=== PATIENT | female | born 1945 | race Caucasian/White ===

== ENCOUNTER 2019-07-13 07:14 | Inpatient (IN) | payer MEDICARE, OTHER, SELFPAY ==
[2019-07-12 13:33] VITALS: BMI 33.8
[2019-07-13] VITALS (21 sets, daily range): BP systolic 104–157; BP diastolic 32–80; PULSE 60–76; RESP 15–21; TEMP 36.3–36.8; O2SAT 91–98
[2019-07-13] MEDS: sodium chloride 0.9% 1,000 ML 30 ML IV (06:12)
--- NOTE | 2019-07-13 06:20 | ANES.PREANES ---
Pre-Anesthetic Assessment Pre-Anesthetic Assessment: Height/Weight: Height 1.6 m Weight 86.636 kg Temp Pulse Resp BP Pulse Ox 97.3 F L 76 18 152/76 97 07/13/19 05:35 07/13/19 05:35 07/13/19 05:35 07/13/19 05:35 07/13/19 05:35 Proposed Procedure: Operation Date: 07/13/19 07:05 Proposed Procedures p Total Shoulder Arthroplasty 01652 , M19.011(Right) - Eliazar Meyers MD Familial anesthetic complications: none Was Beta Karan taken within 24 hours: Yes Last intake: Intake Last Liquid Date 07/12/19 Last Solid Date 07/12/19 Social: Social History: No alcohol and No tobacco Exam: Pre-Anes Outpt Exam: regular rate & rhythm Airway: Submandibular: WNL Cervical ROM: WNL MP: 2 Additional comments: chipped and missing Pulmonary: Pulmonary: None reported CV/HEM: CV/HEM: Afib, CAD and HTN Comments: seen by dr. werner : : None reported Hepatic: Hepatic: None reported GI: GI: GERD Metabolic: Comments: pre diabetic Musc/skel: Comments: spinal cord stimulator Neuropsych: Neuropsych: None reported Anesthetic Plan: ASA status: III Anesthesia: General and Regional (specify below) Other: isb Risk of > 500 ml blood loss (7ml/kg in children): Yes, adequate IV access and fluids planned Meds/Allergies Current Medications: Current Medications Generic Name Dose Route Start Last Admin Trade Name Freq PRN Reason Stop Dose Admin Sodium Chloride 1,000 mls @ 30 ml s/hr 07/13/19 05:30 07/13/19 06:12 Sodium Chloride 0.9% IV 07/14/19 05:29 30 mls/hr .Q24H DENA Administration PFSH Anesthesia PFSH: Social History (Updated 07/12/19 @ 13:30 by Paula Brewer) Smoking and tobacco status: never smoked Alcohol intake: never Data Anesthesia Cardiac Studies: No Data to Display
[2019-07-13] MEDS: midazolam 1 mg/mL INJ 5 ML 2 MG IV ×2 (06:40→06:41)
--- NOTE | 2019-07-13 06:57 | PM.HP ---
Providers/Chief Complaint Primary Care Provider: Laurie Freeman MD Chief Complaint: Primary osteoarthritis of right shoulder History of Present Illness Donna Mondragon is a 74 year old female with a long history of pain in her right shoulder. He describes it dull and aching and generally worse with use. She has particular trouble with overhead activity and lifting. He describes progressive motion loss. She has failed physical therapy, medications including Ultram, and morphine which she takes for her low back. She is here for elective right total shoulder arthroplasty. Review of Systems Const: Denies: fever or chills Card: Denies: chest pain or palpitations Resp: Denies: shortness of breath or productive cough GI: Denies: abdominal pain, nausea or vomiting : Denies: urinary frequency Ishan/Lymph: Reports: other (Denies deep venous thromboses or pulmonary emboli); Denies: easy bleeding Medications/Allergies Home Medications Medication Instructions Recorded Confirmed Last Taken Type amlodipine-benazepril 1 cap PO DAILY 07/12/19 07/13/19 07/13/19 05:00 History ascorbic acid (vitamin C) [Vitamin 1,500 mg PO DAILY 07/12/19 07/13/19 07/12/19 History C] aspirin [Aspir-81] 81 mg PO DAILY 07/12/19 07/13/19 07/10/19 History calcium carbonate [Calcium 600] 600 mg PO DAILY 07/12/19 07/13/19 07/12/19 History chlorpheniramine maleate 4 mg PO Q8H PRN 07/12/19 07/13/19 07/12/19 History [ChlorTabs] docusate sodium [Colace] 100 mg PO DAILY 07/12/19 07/13/19 07/12/19 History gabapentin 300 mg PO TID 07/12/19 07/13/19 07/12/19 History hydralazine 50 mg PO TID PRN 07/12/19 07/13/19 07/13/19 05:00 History hydrochlorothiazide 6.25 mg PO DAILY 07/12/19 07/13/19 07/12/19 History ipratropium bromide 2 spray INTRANASAL DAILY 07/12/19 07/13/19 07/12/19 History loratadine [Claritin] 10 mg PO DAILY 07/12/19 07/13/19 07/12/19 History magnesium oxide 400 mg PO BID 07/12/19 07/13/19 07/12/19 History metoprolol tartrate 50 mg PO BID 07/12/19 07/13/19 07/13/19 05:00 History multivitamin 1 tab PO DAILY 07/12/19 07/13/19 07/12/19 History nitroglycerin [Nitrostat] 0.4 mg SUBLINGUAL Q5M PRN 07/12/19 07/12/19 Unknown History omeprazole 40 mg PO BID 07/12/19 07/13/19 07/13/19 05:00 History potassium gluconate 99 mg PO DAILY 07/12/19 07/13/19 07/12/19 History ropinirole 2 mg PO BEDTIME 07/12/19 07/13/19 07/12/19 History tramadol 50 mg PO BID PRN 07/12/19 07/13/19 07/12/19 History zolpidem 5 mg PO BEDTIME 07/12/19 07/13/19 07/11/19 History acetaminophen [Tylenol Extra 500 mg PO Q4H PRN 07/13/19 07/13/19 07/12/19 History Strength] Allergies Allergy/AdvReac Type Severity Reaction Status Date / Time latex Allergy ALGY-Rash Verified 07/13/19 05:56 baclofen AdvReac ADR-Fatigue Verified 07/13/19 05:36 d PFSH Acute PFSH: Statuses (acute, chronic, etc) shown below reflect problem list status as previously entered and may not be historically accurate Medical History (Updated 07/13/19 @ 07:07 by Eliazar Meyers MD) Afib (Acute) Back pain (Acute) HTN (hypertension) (Acute) Social History (Updated 07/12/19 @ 13:30 by Paula Brewer) Smoking and tobacco status: never smoked Alcohol intake: never Vitals/I&O/Wt Last Vital Signs Temp 97.3 F L 07/13/19 05:35 Pulse 76 07/13/19 05:35 Resp 18 07/13/19 05:35 BP 152/76 07/13/19 05:35 Pulse Ox 97 07/13/19 05:35 Weight last 48 hrs Weight 191 lb Weight 191 lb Physical Exam Narrative: EXAM NARRATIVE: HEAD: Normocephalic/atraumatic. NECK: Soft supple nontender. HEART: Normal heart sounds, regular rhythm. CHEST: Clear to auscultation. ABDOMEN: Soft nontender nondistended. Right upper extremity: Her right shoulder can be flexed to 90 and externally rotated to 0. She can abduct 70 degrees. She has weakness abducting her arm away from her body due to pain but her biceps, triceps, welder production line arc, interossei, wrist extensors, wrist flexors are strong and symmetrical. Her sensation is intact light touch. Data Imaging^: Xray Ortho: My impression: Plain radiographs dated 04/22/19 show complete obliteration of the glenohumeral joint space. There is no proximal migration of the humerus. A CT scan dated that same date shows a fairly concentric wear pattern with minimal posterior wear A&P Assessment and plan (1) Osteoarthritis of right shoulder: The patient is scheduled for an elective right total shoulder arthroplasty. She has been previously counseled. We will proceed as scheduled. Status: Acute Code(s): M19.011 - Primary osteoarthritis, right shoulder Attestations Medical Necessity Statement*: Patient will be admitted inpatient for pain management and initiation of physical therapy. Coding Level of Care Code Acute Rn Case Manager for Gabino Ford Diagnoses Osteoarthritis of right shoulder M19.011
--- NOTE | 2019-07-13 07:11 | ANES.PROC ---
Anesthesia Procedures Procedure/Date: 07/13/19 Nerve Block ^: Nerve Block 1: Main Anesthesia: general anesthesia Time Out Performed: Yes Consent: requested by attending/covering physician, from patient, risks and benefits reviewed and patient agrees to proceed Nerve block location: interscalene (Right) Anesthesia monitors applied: pulse oximetry, EKG, BP cuff and oxygen Nerve block position: semi sitting Anesthetic Used: ropivicaine 0.5% (20 ml) and with decadron (4 mg) Ultrasound used to: recognize landmarks and visualize and ID brachial plexus Nerve Stimulator Used?: No Interscalene/Femoral BLK: 2 stimuplex 22 g needle used for position and inplane approach Injection: neg aspiration of heme and paresthesia +/- Patient Tolerated Procedure: well and no complications Additional Comments: chloroprep of skin
--- NOTE | 2019-07-13 08:30 | SUR.OPER ---
0755 - Pt's son (Jeison) notified of surgery start via his cell phone.
[2019-07-13] MEDS: EPINEPHrine 1 mg/mL INJ XX (08:44)
--- NOTE | 2019-07-13 09:25 | SUR.OPER ---
0924 - On's name is Ric, not Jeison. Ric updated on surgery progress and pt status via his cell phone
--- NOTE | 2019-07-13 09:44 | P.OP_ITS ---
Operative Report Post-Operative Note: Date of procedure: 07/13/19 Preop Diagnosis: Osteoarthritis right shoulder Post-op diagnosis: same Post-op Findings: Same Procedure Done: Right total shoulder arthroplasty Implants: Rodrigo ReUnion total shoulder: 13 mm diameter/97 mm length press-fit humeral stem, size 44/16 mm thickness humeral head, size 48 self pressurizing glenoid. Pathology: none sent Anesthesia: ISB Estimated blood loss (mL): 200 Complications: None Findings: The patient had severe glenohumeral joint disease of the right s houlder with flattening and peripheral osteophytes about the humeral head and fairly concentric sclerotic wear of the glenoid Condition: stable Disp osition: PACU Operative Report: Procedure: An intrascalene blocks provided the holding area. The patient was taken to the operating room and given a general anesthesia. They were given 2 g of Ancef. Positioned in beachchair position with the arm in arm chambers. A timeout was performed. A 10 cm long incision was made over the deltopectoral groove and dissection carried out with a scalpel blade to the deltopectoral interval. The cephalic vein was identified and retracted laterally. Digital dissection was accomplished to free lesions beneath the deltoid and beneath the coracobrachialis musculature. A self-retaining retractor was placed along axis to the subscapularis tendon. Utilizing cautery the subscapularis was released anteriorly in full-thickness with the capsule and freed distally at the level of the anterior humeral circumflex vessels. The glenohumeral joint include bending externally rotated and dislocated anteriorly. A canal finder was placed down the canal and sequential reaming accomplished up to 13 mm. The proximal humerus was then broached to 13 mm. Utilizing electrocautery the glenoid was spelled circumferentially. The centering guide was used to place the central guidepin and the glenoid ream down to sclerotic bone. A 48 mm [place] baseplate seemed to provide the best coverage. The baseplate was prepared with the central and 3 peripheral holes. The drill holes were soaked in epinephrine solution and the final 48 mm self pressurizing glenoid component was placed. The final size 13 ReUnion press-fit humeral stem humeral stem was press-fit into place. With a braided #2 suture passed around the stem and through the lesser tuberosity. The final 44 mm diameter/16 mm head was placed. The shoulder was reduced and found to be stable. The subscapularis was repaired with the sutures through the tuberosity to bone and reinforced with 1 Ethibond. The deltopectoral interval was closed with 0 Vicryl. The subcutaneous tissues were closed with 2-0 Vicryl. The skin was closed with skin gab. Sterile dressings were applied. The patient was placed in a sling extubated and taken to recovery room in stable condition. Coding Level of Care Code Acute Pan Devulcanizer Helper for Gabino Ford
--- NOTE | 2019-07-13 10:02 | XR_ITS ---
WS: [id number] SHOULDER RIGHT TECHNIQUE: 3 views of the right shoulder CLINICAL INFORMATION: postop TSA COMPARISON: FINDINGS: Postoperative changes right total shoulder arthroplasty. Hardware appears well seated. Surgical gab. Soft tissue edema. XR/XR shoulder RT 1V [id number] IMPRESSION: Satisfactory early postoperative changes right TSA.
--- NOTE | 2019-07-13 10:07 | SUR.PHASEI ---
0950 PATIENT TO PACU AT THIS TIME VIA GURNEY FROM OR. PATIENT ALERT, RR EVEN AND UNLABORED. DRESSING TO RIGHT SHOULDER, CDI. SLING IN PLACE. RIGHT RADIAL PULSE PRESENT. CAP REFILL < 3 SECONDS.
--- NOTE | 2019-07-13 10:21 | SUR.PHASEI ---
1021 FAMILY UPDATED AND DIRECTED TO MED SURG WAITING ROOM.
--- NOTE | 2019-07-13 10:52 | SUR.PHASEI ---
1031 PATIENT TO MED SURG AT THIS TIME. A/OX3. RR EVEN AND UNLABORED. PWD. DRESSING TO RIGHT SHOULDER, CDI. RADIAL PULSE PRESENT. CAP REFILL < [address] FIRST ICE IN PLACE.
--- NOTE | 2019-07-13 10:53 | SUR.PHASEI ---
VSS ON ARRIVAL TO MED SURG . 114/65, PULSE 65, RR 15, SPO2 92%, TEMP 97.9
[2019-07-13] MEDS: ondansetron 2 mg/ML SDV 2 mL 4 MG IVP (11:19)
[2019-07-13] MEDS: sodium chloride 0.9% 1,000 ML 80 ML IV (11:21)
[2019-07-13] MEDS: morphine 4 mg/mL SDV 1 mL 2 MG IVP ×2 (12:08→23:08)
--- NOTE | 2019-07-13 13:26 | PM.PACU ---
PACU note Post-Anesthesia Exam: awake and vital signs stable Disposition: back to floor
[2019-07-13] MEDS: acetaminophen 500 mg Tablet PO ×2 (13:54→23:09)
[2019-07-13] MEDS: TRAMadol 50 mg Tablet PO ×2 (13:55→23:08)
[2019-07-13] MEDS: gabapentin 300 mg Capsule PO ×2 (14:00→20:56)
[2019-07-13] MEDS: ceFAZolin 1,000 MG in sodium chloride 0.9% (plus) 50 ML 100 MG IV ×2 (16:42→23:09)
--- NOTE | 2019-07-13 17:25 | PC.PT ---
Patient seen by OT, SBA for transfers and gait, which OT is addressing, no PT required at this time. Thank You.
[2019-07-13] MEDS: pantoprazole DR 40 mg Tablet PO (18:22)
[2019-07-13] MEDS: metoprolol tartrate 50 mg Tablet PO (18:22)
[2019-07-13] MEDS: ropinirole 1 mg Tablet 2 MG PO (20:56)
[2019-07-13] MEDS: oxyCODONE 5 mg IR Tab/Cap PO (21:00)
[2019-07-13] MEDS: zolpidem 5 mg Tablet PO (21:54)
--- NOTE | 2019-07-13 23:39 | PC.NURSE ---
Pain: Patient states pain is still a 6/10 but it is starting to ease down; it is not as intense as it was.
[2019-07-14 01:38] VITALS: RESP 18
[2019-07-14] MEDS: oxyCODONE 5 mg IR Tab/Cap PO ×2 (01:38→06:12)
[2019-07-14 01:39] VITALS: RESP 18
[2019-07-14] MEDS: morphine 4 mg/mL SDV 1 mL 2 MG IVP (01:39)
[2019-07-14] MEDS: sodium chloride 0.9% 1,000 ML 80 ML IV (02:04)
--- NOTE | 2019-07-14 02:05 | PC.NURSE ---
Pain: Pain has gotten better per patient. She still states it is a 6/10. Educated on pain scale. Per FLACC she is 0. Per report she is a 6 with improvement and tolerability. Neuro vascular checks have been normal.
[2019-07-14 03:34] VITALS: BP 127/65; PULSE 76; RESP 18; TEMP 37.3; O2SAT 89
[2019-07-14] MEDS: ondansetron 2 mg/ML SDV 2 mL 4 MG IVP ×2 (05:02→09:26)
[2019-07-14 05:39] LABS: Basophils % 0.2 %; Eosinophils % 0.1 %; Hematocrit 35.1 % (37.0-47.0); Lymphocytes # 1.3 10^3/uL (0.8-4.8); Lymphocytes % 10.3 %; Mean Corpuscular HGB Conc 31.3 g/dL (30.0-36.0); Mean Corpuscular Hemoglobin 30.5 pg (28.0-34.0); Mean Corpuscular Volume 97.2 fL (81-99); Mean Platelet Volume 10.1 fL (7.4-10.4); Monocytes # 1.5 10^3/uL (0.2-0.9); Monocytes % 11.8 %; Neutrophils # 9.5 10^3/uL (1.8-7.7); Neutrophils % 77.2 %; Nucleated Red Blood Cells % 0 %; Platelet Count 282 10^3/cmm (130-400); Red Blood Count 3.61 10^6/uL (4.1-5.3); Red Cell Distribution Width 13.4 % (12.1-15.1); White Blood Count 12.3 10^3/uL (4.0-10.0)
[2019-07-14 06:12] VITALS: RESP 17
[2019-07-14] MEDS: ceFAZolin 1,000 MG in sodium chloride 0.9% (plus) 50 ML 100 MG IV (06:13)
[2019-07-14 07:47] VITALS: BP 134/70; PULSE 80; RESP 18; TEMP 37.5; O2SAT 94
[2019-07-14] MEDS: gabapentin 300 mg Capsule PO (08:30)
[2019-07-14] MEDS: aspirin 81 mg EC Tablet PO (08:30)
[2019-07-14] MEDS: lisinopril 20 mg Tablet PO (08:30)
[2019-07-14] MEDS: hydroCHLOROthiazide 25 mg Tablet 6.25 MG PO (08:30)
[2019-07-14] MEDS: metoprolol tartrate 50 mg Tablet PO (08:30)
[2019-07-14] MEDS: pantoprazole DR 40 mg Tablet PO (08:31)
[2019-07-14] MEDS: amlodipine 10 mg Tablet PO (08:31)
[2019-07-14] MEDS: loratadine 10 mg Tablet PO (08:31)
--- NOTE | 2019-07-14 08:41 | PM.DCS ---
Discharge Providers Date of Admission: 07/13/19 07:14 Date of Discharge: 07/14/19 Attending Provider at Admission: Eliazar Meyers Attending Provider at Discharge: Eliazar Meyers Primary Care Provider: Laurie Freeman MD Diagnoses at Discharge Discharge Diagnosis (1) Osteoarthritis of right shoulder: Status: Acute Reason for Visit Reason for Visit: Reason For Visit: Primary osteoarthritis of right shoulder Hospital Course Hospital Course: The patient tolerated her right total shoulder arthroplasty well. By the first postoperative day she was compliant with her exercise program. Her pain was tolerable with oral medications. Tolerating p.o. diet and passing urine. She was thought stable for discharge at that time. Physical Exam Narrative: EXAM NARRATIVE: The patient's right shoulder dressing was clean and dry. She had slight bruising over her antecubital elbow. She would fire her deltoid and her biceps. She had no motor deficits in her right forearm and hand Discharge Data Data Completed and Pending: Completed Studies During Hospitalization Category Date Time Status XR shoulder RT 1V [id number] Routine Exams 07/13/19 10:02 Completed Labs from last 24 hours 07/14/19 04:45 WBC 12.3 H RBC 3.61 L Hgb 11.0 L Hct 35.1 L MCV 97.2 MCH 30.5 MCHC 31.3 RDW 13.4 Plt Count 282 MPV 10.1 Neut % (Auto) 77.2 Lymph % (Auto) 10.3 [place] % (Auto) 11.8 Eos % (Auto) 0.1 Baso % (Auto) 0.2 Neut # (Auto) 9.5 H Lymph # (Auto) 1.3 [place] # (Auto) 1.5 H Eos # (Auto) 0.0 Baso # (Auto) 0.0 Nucleated RBC % (a uto) 0 Nucleated RBCs # 0.0 Vitals: Last Vital Signs Temp 99.5 F 07/14/19 07:47 Pulse 80 07/14/19 07:47 Resp 18 07/14/19 07:47 BP 134/70 07/14/19 07:47 Pulse Ox 94 07/14/19 07:47 Discharge Plan Discharge Patient Disposition: Home, Self-Care Condition: Stable Prescriptions: New oxycodone 5 mg Tablet 5 - 10 mg PO Q4H PRN (Reason: Moderate To Severe Pain) Qty: 40 RF: 0 Continued multivitamin Tablet 1 tab PO DAILY RF: 0 ascorbic acid (vitamin C) [Vitamin C] 1,000 mg Tablet 1,500 mg PO DAILY RF: 0 chlorpheniramine maleate [ChlorTabs] 4 mg Tablet 4 mg PO Q8H PRN (Reason: Allergic Symptoms) RF: 0 ropinirole 1 mg tablet 2 mg PO BEDTIME RF: 0 omeprazole 40 mg capsule,delayed release(DR/EC) 40 mg PO BID RF: 0 aspirin [Aspir-81] 81 mg Tablet,Delayed Release (Dr/Ec) 81 mg PO DAILY RF: 0 tramadol 50 mg tablet 50 mg PO BID PRN (Reason: Pain) RF: 0 calcium carbonate [Calcium 600] 600 mg calcium (1,500 mg) Tablet 600 mg PO DAILY RF: 0 metoprolol tartrate 50 mg tablet 50 mg PO BID RF: 0 Nitrostat 0.4 mg Tablet, Sublingual 0.4 mg SUBLINGUAL Q5M PRN (Reason: Chest Pain) RF: 0 docusate sodium [Colace] 100 mg Capsule 100 mg PO DAILY RF: 0 gabapentin 300 mg capsule 300 mg PO TID RF: 0 hydralazine 50 mg tablet 50 mg PO TID PRN (Reason: Itching) RF: 0 hydrochlorothiazide 25 mg tablet 6.25 mg PO DAILY RF: 0 zolpidem 5 mg tablet 5 mg PO BEDTIME RF: 0 ipratropium bromide 0.03 % spray,non-aerosol 2 spray INTRANASAL DAILY RF: 0 loratadine [Claritin] 10 mg Tablet 10 mg PO DAILY RF: 0 amlodipine-benazepril 10-20 mg capsule 1 cap PO DAILY RF: 0 potassium gluconate 595 mg (99 mg) Tablet Extended Release 99 mg PO DAILY RF: 0 magnesium oxide 400 mg magnesium Tablet 400 mg PO BID RF: 0 Tylenol Extra Strength 500 mg Tablet 500 mg PO Q4H PRN (Reason: PAIN) RF: 0 Discharge Orders: Discharge Order (Routine); Ordered 07/14/19 Ordered By: Eliazar Meyers Referrals: Eliazar Meyers MD [Physician] - 07/28/19 9:45 am Discharge Diet: Advance as tolerated Discharge Activity: As per PT/OT instructions Activity Restrictions/Additional Instructions: May shower once incisions completely free of drainage. Replaced dressings as needed for drainage. May take Ultram as usual Take oxycodone for breakthrough pain. Exercises per physical therapy. Ice as needed for pain and swelling.. Discharge Attestations Time Spent in Discharge Care*: other Quality Metrics Clinical Quality Measures During this hospital stay, did patient experience: None Coding Level of Care Code Acute Commercial Collections Specialist for Gabino Ford Diagnoses Osteoarthritis of right shoulder M19.011
[2019-07-14 09:19] VITALS: RESP 18; TEMP 37.5; O2SAT 94
--- NOTE | 2019-07-14 14:28 | ANE.PACU ---
 Inpatient post-anesthesia follow up: Airway intact: Yes Vital signs: Temperature 99.5 F Pulse Rate [Right Radial] 80 Pulse Rate [Left] 64 Respiratory Rate 18 Blood Pressure [Le ft Arm] 134/70 Pulse Oximetry 94 Oxygen Delivery Me thod Room Air Oxygen Flow Rate 8 Fraction of Inspir ed Oxygen Hydration adequate: Yes Nausea and vomiting: No Mental status: Baseline
== END 2019-07-14 10:28 | disposition home or self-care (01) | DRG 483 ==
LOC: MEDSURG 10:19
PROVIDERS: Admitting Provider Orthopaedic Surgery; Family Provider Family Medicine; PCP Family Medicine; Visit Provider Orthopaedic Surgery
PROC: 0RRJ0JZ Replacement of Right Shoulder Joint with Synthetic Substitute, Open Approach (ICD-10-PCS; CPT 23472; principal; 2019-07-13 07:00)
DX: M19.011 Primary osteoarthritis, right shoulder (principal); Z79.82 Long term (current) use of aspirin; I48.91 Unspecified atrial fibrillation; I10 Essential (primary) hypertension
CPT/HCPCS: 36415; 73020; 85025; 96365; 96374; 96375; 97110; 97166; 97530; 97535; C1776; J0171; J0690; J1100; J1580; J2001; J2250; J2270; J2370; J2405; J2704; J2710; J2795; J3010; J3490; J7030

== ENCOUNTER 2019-08-01 13:28 | Outpatient (RCR) | payer MEDICARE, OTHER, SELFPAY | END 2019-08-05 23:59 | disposition home or self-care (01) | LOC: SPT 13:28 | PROVIDERS: Family Provider Family Medicine; PCP Family Medicine; Referring Provider Orthopaedic Surgery; Visit Provider Orthopaedic Surgery | DX: Z47.1 Aftercare following joint replacement surgery (principal); Z96.611 Presence of right artificial shoulder joint | CPT/HCPCS: 97110; 97161 ==

== ENCOUNTER 2019-08-06 06:00 | Outpatient (RCR) | payer MEDICARE, OTHER, SELFPAY | END 2019-09-03 23:59 | disposition home or self-care (01) | LOC: SPT 06:00 | PROVIDERS: Family Provider Family Medicine; PCP Family Medicine; Referring Provider Orthopaedic Surgery; Visit Provider Orthopaedic Surgery | DX: Z47.1 Aftercare following joint replacement surgery (principal); Z96.611 Presence of right artificial shoulder joint | CPT/HCPCS: 97110 ==

== ENCOUNTER → 2019-08-22 13:08 | Outpatient (BNVA) | payer MEDICARE, OTHER, SELFPAY | PROVIDERS: Family Provider Family Medicine; PCP Family Medicine; Visit Provider Orthopaedic Surgery | DX: Z48.89 Encounter for other specified surgical aftercare (principal) | CPT/HCPCS: 73030 ==

== ENCOUNTER 2019-09-04 06:00 | Outpatient (RCR) | payer MEDICARE, OTHER, SELFPAY | END 2019-10-04 23:59 | disposition home or self-care (01) | LOC: SPT 06:00 | PROVIDERS: Family Provider Family Medicine; PCP Family Medicine; Referring Provider Orthopaedic Surgery; Visit Provider Orthopaedic Surgery | DX: Z47.1 Aftercare following joint replacement surgery (principal) | CPT/HCPCS: 97110 ==

== ENCOUNTER → 2019-09-23 12:54 | Outpatient (BNVA) | payer MEDICARE, OTHER, SELFPAY | PROVIDERS: Family Provider Family Medicine; PCP Family Medicine; Visit Provider Anesthesiology | DX: G89.29 Other chronic pain (principal); M54.6 Pain in thoracic spine; M54.9 Dorsalgia, unspecified; Z96.611 Presence of right artificial shoulder joint; Z79.891 Long term (current) use of opiate analgesic | CPT/HCPCS: 99214 ==

== ENCOUNTER 2019-10-05 06:00 | Outpatient (RCR) | payer MEDICARE, OTHER, SELFPAY | END 2019-11-03 23:59 | disposition home or self-care (01) | LOC: SPT 06:00 | PROVIDERS: Family Provider Family Medicine; PCP Family Medicine; Referring Provider Orthopaedic Surgery; Visit Provider Orthopaedic Surgery | DX: Z47.1 Aftercare following joint replacement surgery (principal); Z96.611 Presence of right artificial shoulder joint | CPT/HCPCS: 97110 ==

== ENCOUNTER → 2020-01-03 09:21 | Outpatient (BNVA) | payer MEDICARE, OTHER, SELFPAY | PROVIDERS: Family Provider Family Medicine; PCP Family Medicine; Visit Provider Anesthesiology | DX: G89.29 Other chronic pain (principal); M54.9 Dorsalgia, unspecified; Z96.611 Presence of right artificial shoulder joint; Z79.891 Long term (current) use of opiate analgesic | CPT/HCPCS: 99213; 99214 ==

== ENCOUNTER → 2020-03-27 09:56 | Outpatient (BNVA) | payer MEDICARE, OTHER, SELFPAY | PROVIDERS: Family Provider Family Medicine; PCP Internal Medicine; Visit Provider Nurse Practitioner | DX: G89.29 Other chronic pain (principal); M54.42 Lumbago with sciatica, left side; M54.41 Lumbago with sciatica, right side; M54.9 Dorsalgia, unspecified; M54.6 Pain in thoracic spine; G25.81 Restless legs syndrome; G47.01 Insomnia due to medical condition; Z79.891 Long term (current) use of opiate analgesic | CPT/HCPCS: 99215 ==

== ENCOUNTER 2020-04-10 12:34 | Outpatient (CLI) | payer MEDICARE, OTHER, SELFPAY ==
--- NOTE | 2020-04-10 13:00 | CT_ITS ---
WS: [id number] CT LUMBAR SPINE TECHNIQUE: Noncontrast CT of the lumbar spine with coronal and sagittal reformatted images. CLINICAL INFORMATION: Increased pain with increased leg pain COMPARISON: None. DLP: 1931.[address] scans at [facility] use at least one of these dose optimization techniques: automat ed exposure control; mA and/or kV adjustment per patient size (includes targeted exams where dose is matched to clinical indication); or iterative reconstruction. FINDINGS: Mild lumbar curve convex left. No acute compression fractures. Disc space narrowing worse L5-S1 with vacuum disc phenomenon. L1-L2: Mild disc bulging with slight effacement of the ventral thecal sac. Osteophytic ridging. Mild facet arthropathy. Spinal canal and foramen are patent. L2-L3: Mild annular bulging. Slight narrowing of the left subarticular recess. Spinal canal and alma delia en are patent. Moderate facet arthropathy. L3-L4: Mild disc bulging with moderate facet arthropathy. Mild to moderate central canal stenosis wit h narrowing of the subarticular recess. Mild left and no significant right foraminal narrowing. L4-L5: Mild annular bulging. Left proximal foraminal protrusion slightly encroaches on the exiting le ft L4 nerve root laterally. Narrowing of the left subarticular recess. Impingement on the traversing left L5 nerve root. Right foramen is patent. Moderate facet arthropathy. Moderate central canal steno sis. L5-S1: Small broad-based central protrusion with mild central canal stenosis. Impingement traversing S1 nerve roots bilaterally. Mild to moderate left foraminal narrowing. Exophytic increased attenuation left renal lesion likely represents hemorrhagic cyst measuring 1.5 CM . This can be followed up with ultrasound. Visualized pelvic bony structures: Normal. Paravertebral soft tissues: Normal. CT/CT lumbar spine wo con* [id number] IMPRESSION: 1. Mild lumbar curve. No acute compression. 2. Moderate central canal stenosis L3-L4 and L4-L5 due to disc bulging in comb ination with facet arthropathy and ligament flavum hypertrophy. This appears pr ogressed since the MRI in 2018. 3. Left proximal foraminal disc protrusion L4-5 with impingement traversing le ft L5 nerve root and slight encroachment on the far exiting left L4 nerve root. 4. Moderate facet arthropathy. L3-L5. 5. Small central protrusion L5-S1 impinges the traversing S1 nerve roots bilat erally with moderate left foraminal narrowing.
--- NOTE | 2020-04-10 13:30 | CT_ITS ---
WS: [id number] CT THORACIC SPINE TECHNIQUE: Noncontrast CT of the thoracic spine with coronal and sagittal reformatted images. CLINICAL INFORMATION: Increased thoracic pain COMPARISON: CT July 12, 2018 and MRI 6 20,018 DLP: 2926.[address] scans at [facility] use at least one of these dose optimization techniques: automat ed exposure control; mA and/or kV adjustment per patient size (includes targeted exams where dose is matched to clinical indication); or iterative reconstruction. FINDINGS: S-shaped thoracic scoliosis. Moderate thoracic kyphosis. Moderate spondylitic changes thoracic spine with anterior hypertrophic changes. Dorsal spinal stimulator with electrode leads in the mid thoracic spine at T7-8 level. No high-grade central canal stenosis. No significant visualized disc protrusion s or extrusions. No acute appearing compression fractures. Mild chronic anterior wedging in the mid t horacic spine at T7. Moderate facet arthropathy lower thoracic spine. Mild bony foraminal narrowing l eft T8-9 and left T10-11. Aortic calcification. Slight atelectasis in the lung bases. Tortuous thoracic aorta. Partially visualized left renal cyst. CT/CT thoracic spin wo con* [id number] IMPRESSION: 1. S-shaped thoracic scoliosis with moderate thoracic kyphosis. 2. Thoracic spinal stimulator with electrode leads dorsally at T8-T9 appears i n good position. 3. No significant central canal stenosis. 4. Mild chronic anterior wedging in the mid thoracic spine at T7. No acute vega earing compression fractures. 5. Moderate spondylitic changes with anterior protruding hypertrophic spurring at T8-T9. 6. No significant changes since 2018
== END 2020-04-10 12:35 | disposition home or self-care (01) ==
LOC: CT 12:36
PROVIDERS: PCP Internal Medicine; Visit Provider Nurse Practitioner
DX: M79.604 Pain in right leg (principal); M79.605 Pain in left leg; M40.294 Other kyphosis, thoracic region; M48.54XA Collapsed vertebra, not elsewhere classified, thoracic region, initial encounter for fracture; X58.XXXA Exposure to other specified factors, initial encounter; M48.061 Spinal stenosis, lumbar region without neurogenic claudication; M47.816 Spondylosis without myelopathy or radiculopathy, lumbar region; M51.26 Other intervertebral disc displacement, lumbar region; M51.27 Other intervertebral disc displacement, lumbosacral region
CPT/HCPCS: 72128; 72131

== ENCOUNTER → 2020-04-24 13:10 | Outpatient (BNVA) | payer MEDICARE, OTHER, SELFPAY | PROVIDERS: Family Provider Family Medicine; PCP Internal Medicine; Visit Provider Anesthesiology | DX: G89.29 Other chronic pain (principal); M54.6 Pain in thoracic spine; M54.9 Dorsalgia, unspecified; Z79.891 Long term (current) use of opiate analgesic | CPT/HCPCS: 99213; 99214 ==

== ENCOUNTER 2020-05-08 13:55 | Outpatient (CLI) | payer MEDICARE, OTHER, SELFPAY ==
--- NOTE | 2020-05-08 14:12 | MM_ITS ---
WS: [id number] BILATERAL DIGITAL SCREENING MAMMOGRAPHY WITH CAD CLINICAL INFORMATION: SCREENING HISTORY: Screening mammogram. No current complaints. COMPARISON: TECHNIQUE: Bilateral CC and MLO views. FINDINGS: Scattered fibroglandular densities bilaterally. No suspicious focal mass, asymmetry, calcifications, or architectural distortion. No evidence of malignancy. Vascular calcification. Stable dystrophic parish cification right breast. MM/[id number] IMPRESSION: BI-RADS: 2-Benign FOLLOW UP: 1 Year Follow-up Recommend return to annual screening mammography.
== END 2020-05-08 13:56 | disposition home or self-care (01) ==
LOC: RADSHAW 14:01
PROVIDERS: PCP Internal Medicine; Visit Provider Internal Medicine
DX: Z12.31 Encounter for screening mammogram for malignant neoplasm of breast (principal)
CPT/HCPCS: 77067

== ENCOUNTER → 2020-07-24 12:52 | Outpatient (BNVA) | payer MEDICARE, OTHER, SELFPAY | PROVIDERS: PCP Internal Medicine; Visit Provider Nurse Practitioner | DX: G89.29 Other chronic pain (principal); M54.9 Dorsalgia, unspecified; M54.6 Pain in thoracic spine; G25.81 Restless legs syndrome; Z96.611 Presence of right artificial shoulder joint; Z79.891 Long term (current) use of opiate analgesic | CPT/HCPCS: 99214 ==

== ENCOUNTER → 2020-08-06 13:55 | Outpatient (BNVA) | payer MEDICARE, OTHER, SELFPAY | PROVIDERS: PCP Internal Medicine; Visit Provider Anesthesiology Pain Medicine | DX: G89.29 Other chronic pain (principal); M47.814 Spondylosis without myelopathy or radiculopathy, thoracic region; M54.9 Dorsalgia, unspecified; Z79.891 Long term (current) use of opiate analgesic | CPT/HCPCS: 64490; 64491; J3490 ==

== ENCOUNTER → 2020-09-12 09:46 | Outpatient (BNVA) | payer MEDICARE, OTHER, SELFPAY | PROVIDERS: PCP Internal Medicine; Visit Provider Anesthesiology Pain Medicine | DX: M54.9 Dorsalgia, unspecified (principal); M47.814 Spondylosis without myelopathy or radiculopathy, thoracic region; M47.816 Spondylosis without myelopathy or radiculopathy, lumbar region; Z79.891 Long term (current) use of opiate analgesic | CPT/HCPCS: 99214 ==

== ENCOUNTER → 2020-10-26 12:52 | Outpatient (BNVA) | payer MEDICARE, OTHER, SELFPAY | PROVIDERS: PCP Internal Medicine; Visit Provider Anesthesiology | DX: G89.29 Other chronic pain (principal); M54.9 Dorsalgia, unspecified; M54.6 Pain in thoracic spine; M47.814 Spondylosis without myelopathy or radiculopathy, thoracic region; M47.816 Spondylosis without myelopathy or radiculopathy, lumbar region; M53.3 Sacrococcygeal disorders, not elsewhere classified; G25.81 Restless legs syndrome; Z79.891 Long term (current) use of opiate analgesic | CPT/HCPCS: 99213 ==

== ENCOUNTER → 2020-12-11 10:33 | Outpatient (BNVA) | payer MEDICARE, OTHER, SELFPAY | PROVIDERS: PCP Internal Medicine; Visit Provider Nurse Practitioner | DX: G89.29 Other chronic pain (principal); M47.816 Spondylosis without myelopathy or radiculopathy, lumbar region; M47.814 Spondylosis without myelopathy or radiculopathy, thoracic region; M54.9 Dorsalgia, unspecified; M53.3 Sacrococcygeal disorders, not elsewhere classified; G25.81 Restless legs syndrome; Z96.611 Presence of right artificial shoulder joint; Z79.891 Long term (current) use of opiate analgesic | CPT/HCPCS: 99214 ==

== ENCOUNTER → 2020-12-27 10:32 | Outpatient (BNVA) | payer MEDICARE, OTHER, SELFPAY | PROVIDERS: PCP Internal Medicine; Visit Provider Anesthesiology | DX: G89.29 Other chronic pain (principal); M54.9 Dorsalgia, unspecified; M53.3 Sacrococcygeal disorders, not elsewhere classified; Z79.891 Long term (current) use of opiate analgesic | CPT/HCPCS: G0260; J1030; J3490 ==

== ENCOUNTER → 2021-03-20 10:20 | Outpatient (BNVA) | payer MEDICARE, OTHER, SELFPAY | PROVIDERS: PCP Internal Medicine; Visit Provider Nurse Practitioner | DX: G89.29 Other chronic pain (principal); M47.816 Spondylosis without myelopathy or radiculopathy, lumbar region; M47.814 Spondylosis without myelopathy or radiculopathy, thoracic region; M53.3 Sacrococcygeal disorders, not elsewhere classified; Z79.891 Long term (current) use of opiate analgesic | CPT/HCPCS: 99215 ==

== ENCOUNTER → 2021-04-08 14:15 | Outpatient (BNVA) | payer MEDICARE, OTHER, SELFPAY | PROVIDERS: PCP Internal Medicine; Visit Provider Anesthesiology Pain Medicine | DX: M47.816 Spondylosis without myelopathy or radiculopathy, lumbar region (principal); Z79.891 Long term (current) use of opiate analgesic | CPT/HCPCS: 64635; 64636 ==

== ENCOUNTER 2021-05-10 11:18 | Outpatient (CLI) | payer MEDICARE, OTHER, SELFPAY ==
--- NOTE | 2021-05-10 11:23 | MM_ITS ---
WS: [id number] BILATERAL SCREENING DIGITAL MAMMOGRAM WITH CAD HISTORY: SCREENING COMPARISON: 05/08/2020 and 03/25/2019 Bilateral CC and MLO views submitted. Computer aided detection analyzed. Breast composition: There are scattered areas of fibroglandular density. No suspicious masses, microc alcifications or architectural distortion. Scattered calcifications and asymmetries are stable over m ultiple prior examinations. MM/[id number] IMPRESSION: BI-RADS: 2-Benign FOLLOW UP: 1 Year Follow-up
== END 2021-05-10 11:19 | disposition home or self-care (01) ==
LOC: RADSHAW 11:21
PROVIDERS: PCP Internal Medicine; Visit Provider Clinical Nurse Specialist Adult Health
DX: Z12.31 Encounter for screening mammogram for malignant neoplasm of breast (principal)
CPT/HCPCS: 77067

== ENCOUNTER → 2021-07-02 13:11 | Outpatient (BNVA) | payer MEDICARE, OTHER, SELFPAY | PROVIDERS: PCP Internal Medicine; Visit Provider Anesthesiology | DX: G89.29 Other chronic pain (principal); M47.816 Spondylosis without myelopathy or radiculopathy, lumbar region; M47.814 Spondylosis without myelopathy or radiculopathy, thoracic region; M53.3 Sacrococcygeal disorders, not elsewhere classified; G25.81 Restless legs syndrome; Z79.891 Long term (current) use of opiate analgesic | CPT/HCPCS: 99214 ==

== ENCOUNTER → 2021-11-13 13:46 | Outpatient (BNVA) | payer MEDICARE, OTHER, SELFPAY | PROVIDERS: PCP Internal Medicine; Visit Provider Internal Medicine Cardiovascular Disease | DX: I48.20 Chronic atrial fibrillation, unspecified (principal); I10 Essential (primary) hypertension; I25.10 Atherosclerotic heart disease of native coronary artery without angina pectoris; E78.2 Mixed hyperlipidemia | CPT/HCPCS: 99214 ==

== ENCOUNTER 2021-11-22 13:22 | Outpatient (CLI) | payer MEDICARE, OTHER, SELFPAY ==
--- NOTE | 2021-11-22 13:30 | CT_ITS ---
WS: [id number] CT of the lumbar spine, additional two-dimensional coronal and sagittal imaging was obtained. 11/23/19 22 Clinical Data: LUMBAR DDD Comparison: CT lumbar spine, 04/10/2020. DLP: 1648.[address] scans at [facility] use at least one of these dose optimization techniques: automated e xposure control; mA and/or kV adjustment per patient size (includes targeted exams where dose is matc hed to clinical indication); or iterative reconstruction. Findings: There is a gentle levoscoliosis. There is osteoarthritic spurring at all the lumbar vertebr al bodies. There is degenerative disc disease at L4-L5 and L5-S1. No compression fractures are seen. There is a posterior medial dense left renal cyst unchanged. T12-L1: There is degenerative disc bulging with no canal stenosis and no significant foraminal stenos is. L1-L2: There is degenerative disc bulging with no canal stenosis with slight narrowing of the left ne ural foramen. L2-L3: There is minimal disc bulging with narrowing of the left foramen but not the central canal. L3-L4: There is disc bulging with mild central canal narrowing and minimal bilateral foraminal narrow ing. There is facet joint arthritis. L4-L5: There is disc bulging with narrowing of both foramen. There is moderate central canal stenosis . L5-S1: There is central disc protrusion causing mild canal stenosis. There is bilateral foraminal carlie rowing. CT/CT lumbar spine wo con* [id number] Impression: 1. Degenerative disc narrowing at L4-L5 and L5-S1 with multilevel osteoarthriti s. 2. Multilevel central disc bulging and foraminal narrowing unchanged.
== END 2021-11-22 13:23 | disposition home or self-care (01) ==
LOC: RAD 13:24
PROVIDERS: PCP Internal Medicine; Visit Provider General Practice
DX: M51.36 Other intervertebral disc degeneration, lumbar region (principal); Z96.82 Presence of neurostimulator; M47.817 Spondylosis without myelopathy or radiculopathy, lumbosacral region
CPT/HCPCS: 72131

== ENCOUNTER → 2022-05-21 14:01 | Outpatient (BNVA) | payer MEDICARE, OTHER, SELFPAY | PROVIDERS: PCP Internal Medicine; Visit Provider Internal Medicine Cardiovascular Disease | DX: I25.10 Atherosclerotic heart disease of native coronary artery without angina pectoris (principal); I10 Essential (primary) hypertension; E78.2 Mixed hyperlipidemia; I48.20 Chronic atrial fibrillation, unspecified | CPT/HCPCS: 99214 ==

== ENCOUNTER 2022-10-08 06:00 | Outpatient (RCR) | payer MEDICARE, OTHER, SELFPAY | END 2022-11-02 23:59 | disposition home or self-care (01) | LOC: SPT 06:00 | PROVIDERS: Visit Provider Family Medicine | DX: M15.9 Polyosteoarthritis, unspecified (principal) | CPT/HCPCS: 97113; 97161 ==

== ENCOUNTER 2022-11-03 06:00 | Outpatient (RCR) | payer MEDICARE, OTHER, SELFPAY | END 2022-11-21 23:59 | disposition home or self-care (01) | LOC: SPT 06:00 | PROVIDERS: Visit Provider Family Medicine | DX: M19.91 Primary osteoarthritis, unspecified site (principal); Z68.41 Body mass index [BMI] 40.0-44.9, adult | CPT/HCPCS: 97113 ==

== ENCOUNTER → 2022-12-15 12:51 | Outpatient (BNVA) | payer MEDICARE, OTHER, SELFPAY | PROVIDERS: Visit Provider Nurse Practitioner Family | DX: I48.20 Chronic atrial fibrillation, unspecified (principal); I10 Essential (primary) hypertension; I25.10 Atherosclerotic heart disease of native coronary artery without angina pectoris | CPT/HCPCS: 99214 ==

== ENCOUNTER → 2023-04-07 13:54 | Outpatient (BNVA) | payer MEDICARE, OTHER, SELFPAY | PROVIDERS: PCP Family Medicine; Visit Provider Internal Medicine Cardiovascular Disease | DX: I25.10 Atherosclerotic heart disease of native coronary artery without angina pectoris (principal); I10 Essential (primary) hypertension; E78.2 Mixed hyperlipidemia; I48.20 Chronic atrial fibrillation, unspecified; Z79.82 Long term (current) use of aspirin | CPT/HCPCS: 99214 ==

== ENCOUNTER 2023-04-27 14:27 | Outpatient (CLI) | payer MEDICARE, OTHER, SELFPAY ==
--- NOTE | 2023-04-27 14:52 | CT_ITS ---
WS: [id number] CT LUMBAR SPINE, noncontrast. HISTORY: L-S RADICULOPATHY, PRESENCE OF NEUROSTIMULATOR TECHNIQUE: Contiguous 2.0 mm axial imaging are performed. Sagittal and coronal reformats are submitte d and reviewed. All CT scans at [facility] use at least one of these dose optimization techni ques: automated exposure control; mA and/or kV adjustment per patient size (includes targeted exams w here dose is matched to clinical indication); or iterative reconstruction. IV contrast: None DLP: 1137.39 mGy.cm COMPARISON: 11/22/2021 Mild LEFT curvature lumbar spine similar to the prior study. Mild increase in the lumbar lordosis mil d narrowing of the disc spaces and osteophytosis along the endplates. More significant narrowing invo lving the L5-S1 disc space. Osteopenia with no fracture. L1-2: Mild annular disc bulging. No stenosis. L2-3: Moderate annular disc bulging encroaching upon the ventral thecal sac and the foramina. Mild bi lateral subarticular recess stenosis. L3-4: Marked asymmetric annular disc bulging with ligamentum flavum and facet arthritis. RIGHT forami nal disc protrusion. Progression of central, subarticular recess and foraminal stenosis moderate cent ral, bilateral subarticular recess and RIGHT foraminal stenosis. Mild LEFT foraminal stenosis. Most s ignificant disc contact upon the traversing L4 nerve roots. L4-5: Asymmetric disc bulging encroaching upon the ventral thecal sac. Broad-based LEFT subarticular recess and foraminal disc protrusion. Marked facet hypertrophy. Moderate central, bilateral subarticu lar recess stenosis and mild foraminal stenosis. Most significant encroachment upon the traversing L5 nerve roots, LEFT greater than RIGHT. Progression of disease since the prior study. L5-S1: Mild annular disc bulging, osteophytic ridging and central disc protrusion. Moderate facet charles nt arthritis. Disc protrusion with upon the S1 nerve roots. Moderate bilateral subarticular recess an d foraminal stenosis. Extensive calcification within the abdominal aorta. Bilateral renal masses. Hyperdense mass LEFT kidn ey measures 10 mm. Low-attenuation mass RIGHT kidney measures 13 mm. These were also present on 2021. IMPRESSION: 1. Progression of degenerative disc disease and osteophytosis and stenosis since 11/22/2021. 2. L3-4: Moderate central, bilateral subarticular recess and RIGHT foraminal stenosis. Mild LEFT fora krystyna stenosis. Most significant contact upon the traversing L4 nerve roots. 3. L4-5: Moderate central, bilateral subarticular recess and mild foraminal stenosis. Most significan t contact on the L5 traversing nerve roots. 4. L2-3: Mild bilateral subarticular recess stenosis. 5. L5-S1: Moderate bilateral foraminal and subarticular recess stenosis. Central broad-based disc pro trusion encroaches upon the S1 nerve roots.
--- NOTE | 2023-04-27 14:52 | CT_ITS ---
WS: [id number] CT CERVICAL SPINE HISTORY: CERVICAL READICULOPATHY TECHNIQUE: Contiguous 2.0 mm axial imaging performed through the entire cervical spine. Sagittal and coronal reformats also performed. All CT scans at [facility] use at least one of these dose o ptimization techniques: automated exposure control; mA and/or kV adjustment per patient size (include s targeted exams where dose is matched to clinical indication); or iterative reconstruction. DLP: 547.77 mGy.cm COMPARISON: None available. Quality of this examination is compromised by body habitus. Moderate disc space narrowing at C5-6 and C6-7. No fractures. Small osteophytes. Posterior alignment is normal. Lateral masses of C1 and C2 ar e aligned. Mild LEFT curvature cervical spine. C2-C3: Normal. C3-C4: Normal. C4-C5: Mild osteophytic ridging. Mild RIGHT foraminal narrowing due to an osteophyte. C5-C6: Mild osteophytic ridging. Mild central and bilateral foraminal narrowing due to osteophyte dis ease, LEFT greater than RIGHT. C6-C7: No stenosis. C7-T1: Poorly visualized but no obvious stenosis. RIGHT carotid artery is tortuous and displaced to the midline and very closely associated with the po sterior airway. IMPRESSION: 1. Moderate degenerative disc disease and osteophytosis at C5-6 and C6-7. 2. Mild RIGHT foraminal narrowing at C4-5. 3. Mild central and bilateral foraminal stenosis at C5-6, LEFT greater than RIGHT. 4. No cervical spine fracture.
== END 2023-04-27 14:28 | disposition home or self-care (01) ==
PROVIDERS: PCP Family Medicine; Visit Provider Nurse Practitioner Family
DX: M51.17 Intervertebral disc disorders with radiculopathy, lumbosacral region (principal); M48.07 Spinal stenosis, lumbosacral region; Z96.82 Presence of neurostimulator; M54.12 Radiculopathy, cervical region; M25.78 Osteophyte, vertebrae; M48.02 Spinal stenosis, cervical region
CPT/HCPCS: 72125; 72131

== ENCOUNTER 2023-10-26 10:21 | Outpatient (CLI) | payer MEDICARE, OTHER, SELFPAY ==
--- NOTE | 2023-10-26 10:26 | XRR_ITS ---
PROCEDURE INFORMATION: Exam: XR Right Knee Exam date and time: 10/26/2023 10:31 AM Age: 78 years old Clinical indication: Pain; Knee; Right; Additional info: Pain in R knee TECHNIQUE: Imaging protocol: Radiologic exam of the right knee. Views: 3 views. COMPARISON: No relevant prior studies available. FINDINGS: Bones/joints: Mild medial compartment narrowing. Mild tricompartment spurring. No fracture or dislocation. No acute osseous or joint abnormality. Soft tissues: Normal. XR/XR knee RT 3V* [id number] IMPRESSION: Mild degenerative changes.
== END 2023-10-26 10:22 | disposition home or self-care (01) ==
LOC: RAD 10:21
PROVIDERS: PCP Family Medicine; Visit Provider Family Medicine
DX: M17.11 Unilateral primary osteoarthritis, right knee (principal); M25.561 Pain in right knee
CPT/HCPCS: 73562

== ENCOUNTER 2023-12-03 12:16 | Outpatient (CLI) | payer MEDICARE, OTHER, SELFPAY ==
--- NOTE | 2023-12-03 12:30 | XR_ITS ---
WS: [id number] Exam: XR shoulder LT min 2V* [id number] Date/Time of Exam: 12/03/2023 12:31 PM Reason For Exam: PAIN IN LEFT SHOULDER Comparison 10/25/2018. No acute fracture noted. Old fracture deformity of the head and neck of the humerus. Advanced degener ative changes at the glenohumeral joint. There has been excision of the distal LEFT clavicle. Promine nt osseous protuberance seen along the medial aspect of the head and neck of the humerus secondary to fracture deformity. XR/XR shoulder LT min 2V* [id number] IMPRESSION: 1. Advanced degenerative change of the glenohumeral joint. 2. Old fracture deformity of the head and neck of the humerus. Postoperative ch you of the distal clavicle.
== END 2023-12-03 12:17 | disposition home or self-care (01) ==
LOC: RAD 12:18
PROVIDERS: PCP Family Medicine; Visit Provider Family Medicine
DX: M19.012 Primary osteoarthritis, left shoulder (principal); Z98.890 Other specified postprocedural states
CPT/HCPCS: 73030

== ENCOUNTER → 2024-01-21 13:11 | Outpatient (BNVA) | payer MEDICARE, OTHER, SELFPAY | PROVIDERS: PCP Family Medicine; Visit Provider Student in an Organized Health Care Education/Training Program | DX: M25.512 Pain in left shoulder (principal) | CPT/HCPCS: 73030 ==

== ENCOUNTER → 2024-02-24 15:35 | Outpatient (BNVA) | payer MEDICARE, OTHER, SELFPAY | PROVIDERS: PCP Family Medicine; Visit Provider Internal Medicine Cardiovascular Disease | DX: I25.10 Atherosclerotic heart disease of native coronary artery without angina pectoris (principal); I10 Essential (primary) hypertension; E78.2 Mixed hyperlipidemia; I48.20 Chronic atrial fibrillation, unspecified; M54.9 Dorsalgia, unspecified; G89.29 Other chronic pain | CPT/HCPCS: 99214 ==

== ENCOUNTER 2024-09-30 13:07 | Outpatient (CLI) | payer MEDICARE, OTHER, SELFPAY ==
--- NOTE | 2024-09-30 13:13 | MM_ITS ---
WS: [id number] BILATERAL 3D TOMOSYNTHESIS DIGITAL SCREENING MAMMOGRAPHY WITH CAD CLINICAL INFORMATION: SCREENING HISTORY: Screening mammogram. No current complaints. COMPARISON: 2020 TECHNIQUE: Bilateral CC and MLO views. FINDINGS: Scattered fibroglandular densities bilaterally. No suspicious focal mass, asymmetry, calcifications, or architectural distortion. No evidence of malignancy. Vascular calcifications. Dystrophic calcification RIGHT breast. MM/MM scr BI tomosynthesis [id number] IMPRESSION: DENSITY: There are scattered areas of fibroglandular density. BI-RADS: 2 - Benign. FOLLOW UP: 1 Year Follow-up Recommend return to annual screening mammography.
== END 2024-09-30 13:08 | disposition home or self-care (01) ==
PROVIDERS: PCP Family Medicine; Visit Provider Family Medicine
DX: Z12.31 Encounter for screening mammogram for malignant neoplasm of breast (principal); R92.323 Mammographic fibroglandular density, bilateral breasts; R92.1 Mammographic calcification found on diagnostic imaging of breast
CPT/HCPCS: 77063; 77067

== ENCOUNTER → 2024-11-11 10:52 | Outpatient (BNVA) | payer MEDICARE, OTHER, SELFPAY | PROVIDERS: PCP Family Medicine; Visit Provider Nurse Practitioner Family | DX: I25.10 Atherosclerotic heart disease of native coronary artery without angina pectoris (principal); I48.20 Chronic atrial fibrillation, unspecified; I10 Essential (primary) hypertension; E78.2 Mixed hyperlipidemia; M54.9 Dorsalgia, unspecified; G89.29 Other chronic pain | CPT/HCPCS: 99213 ==

== ENCOUNTER 2025-04-14 11:40 | Outpatient (CLI) | payer MEDICARE, OTHER, SELFPAY ==
--- NOTE | 2025-04-14 11:46 | CT_ITS ---
WS: [id number] CT THORACIC SPINE TECHNIQUE: Noncontrast CT of the thoracic spine with coronal and sagittal reformatted images. CLINICAL INFORMATION: PAIN IN THORACIC SPINE COMPARISON: 2019 DLP: 1049.[address] scans at [facility] use at least one of these dose optimization techniques: automated exposure control; mA and/or kV adjustment per patient size (includes targeted exams where dose is matched to clinical indication); or iterative reconstruction. FINDINGS: Thoracolumbar scoliosis convex RIGHT. Moderate thoracic kyphosis. Hypertrophic changes mid and lower thoracic spine. Dorsal spinal stimulator at approximately T8 Mild anterior wedging at T1 with mild compression deformity superior endplate appears slightly progressed compared to previous. Images at this level are degraded due to beam hardening artifact. Recommend correlation for upper back pain. No retropulsion. Moderate spondylitic changes Disc narrowing lower thoracic spine worse at T6- T12. Vacuum disc phenomenon at T7-T8, T8-T9, T9-T10 T10-T11 and T11-T12. No high-grade central canal stenosis. Moderate facet arthropathy lower thoracic spine. Aortic calcification. Normal caliber descending thoracic aorta. Adrenal glands are normal. Increased attenuation small LEFT exophytic renal lesion likely proteinaceous or hemorrhagic cyst measuring 9 mm. Small esophageal hiatal hernia. Splenic artery calcification. Cardiomegaly. Bibasilar atelectasis. CT/CT thoracic spin wo con* [id number] IMPRESSION: 1. Thoracolumbar scoliosis with kyphosis. 2. Mild compression deformity with slight anterior wedging at T1 appears sligh tly progressed compared to previous. Images at this level are degraded due to b eam hardening artifact. Recommend correlation with upper back pain. No retropul francisco javier. 3. No other acute appearing or interval compression fractures. 4. Dorsal spinal stimulator. 5. Moderate spondylitic changes.
== END 2025-04-14 11:41 | disposition home or self-care (01) ==
LOC: RAD 11:41
PROVIDERS: PCP Family Medicine; Visit Provider Nurse Practitioner Family
DX: M51.34 Other intervertebral disc degeneration, thoracic region (principal); M40.204 Unspecified kyphosis, thoracic region; S22.010A Wedge compression fracture of first thoracic vertebra, initial encounter for closed fracture; X58.XXXA Exposure to other specified factors, initial encounter; Z96.82 Presence of neurostimulator; M46.94 Unspecified inflammatory spondylopathy, thoracic region
CPT/HCPCS: 72128

== ENCOUNTER → 2025-06-20 12:07 | Outpatient (BNVA) | payer MEDICARE, OTHER, SELFPAY | PROVIDERS: PCP Family Medicine; Visit Provider Internal Medicine Cardiovascular Disease | DX: I25.118 Atherosclerotic heart disease of native coronary artery with other forms of angina pectoris (principal); I10 Essential (primary) hypertension; E78.5 Hyperlipidemia, unspecified; I48.20 Chronic atrial fibrillation, unspecified; Z79.82 Long term (current) use of aspirin; M54.9 Dorsalgia, unspecified; G89.29 Other chronic pain; R07.9 Chest pain, unspecified; R06.09 Other forms of dyspnea; Z98.61 Coronary angioplasty status; R00.1 Bradycardia, unspecified; R94.31 Abnormal electrocardiogram [ECG] [EKG] | CPT/HCPCS: 93005; 99214 ==